=== PATIENT | female | born 1985 | race Caucasian/White ===

== ENCOUNTER 2018-01-18 07:04 | Emergency (ER) | payer SELFPAY ==
--- NOTE | 2018-01-18 07:26 | EDPHYS ---
Physician Documentation [facility] Name: Pam Figueredo Age: 32 yrs Sex: Female : 1985 Arrival Date: 01/18/2018 Time: 07:05 Bed 14 Private MD: ED Physician Cristofer Granados HPI: 01/18 07:35 This 32 yrs old Female presents to ER via Ambulatory with complaints of snw Abdominal Pain. 07:35 The patient presents with abdominal pain in the epigastric area. Onset: The snw symptoms/episode began/occurred gradually, 2 month(s) ago, and became persistent. The symptoms do not radiate. Associated signs and symptoms: Pertinent positives: occ N/V/D, no blood. The symptoms are described as "Lava". Severity of pain: At its worst the pain was moderate severe. The patient has experienced similar episodes in the past, chronically. The patient has not recently seen a physician. Worse with food and right after. 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 - Social history:: Smoking status: Patient uses tobacco products, smokes one-half pack cigarettes per day. - Ebola Screening: : Patient negative for fever greater than or equal to 101.5 degrees Fahrenheit, and additional compatible Ebola Virus Disease symptoms. ROS: 07:35 Constitutional: Negative for fever, chills, and weight loss, Eyes: Negative for injury, snw pain, redness, and discharge, ENT: Negative for injury, pain, and discharge, Neck: Negative for injury, pain, and swelling, Cardiovascular: Negative for chest pain, palpitations, and edema, Respiratory: Negative for shortness of breath, cough, wheezing, and pleuritic chest pain, Back: Negative for injury and pain, : Negative for injury, bleeding, discharge, and swelling, MS/Extremity: Negative for injury and deformity, Skin: Negative for injury, rash, and discoloration, Neuro: Negative for headache, weakness, numbness, tingling, and seizure. 07:35 Abdomen/GI: Positive for abdominal pain, of the epigastric area. Exam: 07:34 Constitutional: This is a well developed, well nourished patient who is awake, alert, snw and in no acute distress. + cigarette odor Head/Face: Normocephalic, atraumatic. Eyes: Pupils equal round and reactive to light, extra-ocular motions intact. Lids and lashes normal. Conjunctiva and sclera are non-icteric and not injected. Cornea within normal limits. Periorbital areas with no swelling, redness, or edema. ENT: Nares patent. No nasal discharge, no septal abnormalities noted. Tympanic membranes are normal and external auditory canals are clear. Oropharynx with no redness, swelling, or masses, exudates, or evidence of obstruction, uvula midline. Mucous membranes moist. Neck: Trachea midline, no thyromegaly or masses palpated, and no cervical lymphadenopathy. Supple, full range of motion without nuchal rigidity, or vertebral point tenderness. No Meningismus. Chest/axilla: Normal chest wall appearance and motion. Nontender with no deformity. No lesions are appreciated. Cardiovascular: Regular rate and rhythm with a normal S1 and S2. No gallops, murmurs, or rubs. Normal PMI, no JVD. No pulse deficits. Respiratory: Lungs have equal breath sounds bilaterally, clear to auscultation and percussion. No rales, rhonchi or wheezes noted. No increased work of breathing, no retractions or nasal flaring. Abdomen/GI: Soft, non-tender, with normal bowel sounds. No distension or tympany. No guarding or rebound. No evidence of tenderness throughout. Back: No spinal tenderness. No costovertebral tenderness. Full range of motion. Skin: Warm, dry with normal turgor. Normal color with no rashes, no lesions, and no evidence of cellulitis. MS/ Extremity: Pulses equal, no cyanosis. Neurovascular intact. Full, normal range of motion. Neuro: Awake and alert, GCS 15, oriented to person, place, time, and situation. Cranial nerves II-XII grossly intact. Motor strength 5/5 in all extremities. Sensory grossly intact. Cerebellar exam normal. Normal gait. Psych: Awake, alert, with orientation to person, place and time. Behavior, mood, and affect are within normal limits. Vital Signs: 07:08 BP 134 / 88; Pulse 70; Resp 19; Temp 97.7(O); Pulse Ox 98% on R/A; Weight 63.5 kg (R); rb1 Height 5 ft. 4 in. (162.56 cm) (R); Pain 9/10; 07:30 BP 125 / 90; Pulse 71; Resp 20; Pulse Ox 97% on R/A; rb1 07:08 Body Mass Index 24.03 (63.50 kg, 162.56 cm) rb1 MDM: 07:17 Patient medically screened. snw 07:37 Data reviewed: vital signs, nurses notes. Data interpreted: Pulse oximetry: on room air snw is 98 %. Interpretation: normal. Counseling: I had a detailed discussion with the patient and/or guardian regarding: the historical points, exam findings, and any diagnostic results supporting the discharge/admit diagnosis, the presence of at least one elevated blood pressure reading (>120/80) during this emergency department visit, the need for outpatient follow up, to return to the emergency department if symptoms worsen or persist or if there are any questions or concerns that arise at home. Special discussion: Based on the patient's Hx, exam, and Dx evaluation, there is no indication for emergent surgery or inpatient Tx. It is understood by the patient/guardian that if the Sx's persist or worsen they need to return immediately for re-evaluation. I have referred the patient to see his PCP for further evaluation of high blood pressure. Based on the history and exam findings, there is no indication for further emergent testing or inpatient evaluation. I discussed with the patient/guardian the need to see the foil cutter for further evaluation of the symptoms. I discussed with the patient/guardian the need to see the primary care provider for further evaluation of the symptoms. Administered Medications: 07:34 Drug: GI Cocktail without - (Maalox Suspension 30 ml, Lidocaine Liquid 2 % 15 rb1 ml) Route: PO; 07:45 Follow up: Response: No adverse reaction; Pain is unchanged, physician notified rb1 07:45 Drug: CarafATE 1 grams Route: PO; rb1 08:06 Follow up: Response: No adverse reaction rb1 07:58 Drug: fentaNYL (PF) 50 mcg Route: IM; Site: right gluteus; rb1 08:15 Follow up: Response: No adverse reaction; Pain is decreased rb1 Disposition: 14:59 Co-signature as Attending Physician, Cristofer Granados MD. rn Disposition: 01/18/18 07:26 Discharged to Home. Impression: Gastritis, unspecified. - Condition is Stable. - Discharge Instructions: Gastritis, Adult, Gastroesophageal Reflux Disease, Adult, Peptic Ulcer Disease, Smoking Cessation, Smoking Hazards, Food Choices for Peptic Ulcer Disease. - Prescriptions for Nexium 20 mg Oral Capsule, Delayed Release(E.C.) - take 1 capsule by ORAL route once daily; 60 capsule. - Medication Reconciliation Form, Thank You Letter, Antibiotic Education, Prescription Opioid Use form. - Follow up: Private Physician; When: 1 - 2 days; Reason: Recheck today's complaints, Continuance of care, Re-evaluation by your physician. Follow up: Emergency Department; When: As needed; Reason: Worsening of condition. Signatures: Milana Moran, TELECOMMUNICATIONS OPERATOR-C TELECOMMUNICATIONS OPERATOR-Csnw Cristofer Granados MD MD rn Eloy, Mojgan RN RN rb1 Corrections: (The following items were deleted from the chart) 08:50 07:26 01/18/2018 07:26 Discharged to Home. Impression: Gastritis, unspecified. rb1 Condition is Stable. Forms are Medication Reconciliation Form, Thank You Letter, Antibiotic Education, Prescription Opioid Use. Follow up: Private Physician; When: 1 - 2 days; Reason: Recheck today's complaints, Continuance of care, Re-evaluation by your physician. Follow up: Emergency Department; When: As needed; Reason: Worsening of condition. snw
--- NOTE | 2018-01-18 07:26 | ER ---
Nurse's Notes [facility] Name: Pam Figueredo Age: 32 yrs Sex: Female : 1985 Arrival Date: 01/18/2018 Time: 07:05 Bed 14 Private MD: Diagnosis: Gastritis, unspecified Presentation: 01/18 07:08 Presenting complaint: Patient states: Her stomach is burning and she c/o acid reflux x rb1 2 months. Transition of care: patient was not received from another setting of care. Onset of symptoms is unknown. Risk Assessment: Do you want to hurt yourself or someone else? Patient reports no desire to harm self or others. Initial Sepsis Screen: Does the patient meet any 2 criteria? No. Patient's initial sepsis screen is negative. Does the patient have a suspected source of infection? No. Patient's initial sepsis screen is negative. Care prior to arrival: None. 07:08 Method Of Arrival: Ambulatory rb1 07:08 Acuity: SILVERIO 3 rb1 Triage Assessment: 07:08 General: Appears in no apparent distress. comfortable, Behavior is calm, cooperative, rb1 Denies fever. Pain: Complains of pain in abdomen Pain currently is 9 out of 10 on a pain scale. Quality of pain is described as burning, Pain began couple months ago per pt. report. Neuro: Level of Consciousness is awake, alert, obeys commands, Oriented to person, place, time, situation. Cardiovascular: Capillary refill < 3 seconds is brisk in bilateral fingers. Respiratory: Reports shortness of breath Airway is patent Respiratory effort is even, unlabored, Respiratory pattern is regular, symmetrical. GI: Abdomen is distended, Reports diarrhea, nausea, vomiting, since 0200. 07:08 : No signs and/or symptoms were reported regarding the genitourinary system. Derm: rb1 Skin is pink, warm \\T\\ dry. Musculoskeletal: Range of motion: intact in all extremities. 07:08 GI: Reports Acid Reflux for a couple of months. 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 - Social history:: Smoking status: Patient uses tobacco products, smokes one-half pack cigarettes per day. - Ebola Screening: : Patient negative for fever greater than or equal to 101.5 degrees Fahrenheit, and additional compatible Ebola Virus Disease symptoms. Screenin:08 Abuse screen: Denies threats or abuse. Nutritional screening: No deficits noted. rb1 Tuberculosis screening: No symptoms or risk factors identified. Fall Risk None identified. Assessment: 07:08 General: See triage assessment. rb1 07:08 GI: Bowel sounds present X 4 quads. Abdomen is tender to palpation X 4 quads. rb1 07:28 Reassessment: Faxed medication to pharmacy. rb1 07:45 Reassessment: Pt was crying when I went in to administer the Carafate, provider rb1 notified. Received order for Fentanyl 50 mcg IM x 1. 07:55 Reassessment: Pt. will call someone for transportation home. Discharge pending due to rb1 transportation. 08:15 Reassessment: Patient appears in no apparent distress at this time. Patient and/or rb1 family updated on plan of care and expected duration. Pain level reassessed. Patient is alert, oriented x 3, equal unlabored respirations, skin warm/dry/pink. 08:30 Reassessment: Went to check on pt. and the pt. was not in her room. Provider stated, rb1 "She said she was going out to smoke and hasn't come back in.". 08:40 Reassessment: Pt. is not in her room and can not be located. Pt. left without signing rb1 discharge papers. Vital Signs: 07:08 BP 134 / 88; Pulse 70; Resp 19; Temp 97.7(O); Pulse Ox 98% on R/A; Weight 63.5 kg (R); rb1 Height 5 ft. 4 in. (162.56 cm) (R); Pain 9/10; 07:30 BP 125 / 90; Pulse 71; Resp 20; Pulse Ox 97% on R/A; rb1 07:08 Body Mass Index 24.03 (63.50 kg, 162.56 cm) rb1 ED Course: 07:05 Patient arrived in ED. as 07:08 Arm band placed on right wrist. rb1 07:08 Patient has correct armband on for positive identification. Placed in gown. Bed in low rb1 position. Call light in reach. Side rails up X 1. Pulse ox on. NIBP on. Warm blanket given. 07:14 Mojgan Lyons, RN is Primary Nurse. rb1 07:16 Triage completed. rb1 07:16 Milana Moran FNP-C is PHCP. snw 07:16 Cristofer Granados MD is Attending Physician. snw 07:18 Milana Moran FNP-C is PHCP. snw 08:40 No provider procedures requiring assistance completed. Patient did not have IV access rb1 during this emergency room visit. Administered Medications: 07:34 Drug: GI Cocktail without - (Maalox Suspension 30 ml, Lidocaine Liquid 2 % 15 rb1 ml) Route: PO; 07:45 Follow up: Response: No adverse reaction; Pain is unchanged, physician notified rb1 07:45 Drug: CarafATE 1 grams Route: PO; rb1 08:06 Follow up: Response: No adverse reaction rb1 07:58 Drug: fentaNYL (PF) 50 mcg Route: IM; Site: right gluteus; rb1 08:15 Follow up: Response: No adverse reaction; Pain is decreased rb1 Outcome: 07:26 Discharge ordered by . snw 08:30 Patient left the ED. rb1 08:40 Discharged to home ambulatory. rb1 08:40 Condition: stable 08:40 Discharge instructions given to pt. left without signing papers. Signatures: Milana Moran FNP-C COLOR BLENDER-Csnw Sera Ku as Mojgan Lyons, RN RN rb1 Corrections: (The following items were deleted from the chart) 08:00 07:58 Reassessment: Pt was crying when I went in to administer the Carafate, provider rb1 notified. Received order for Fentanyl 50 mcg IM x 1 rb1 08:47 07:45 CarafATE 1 grams PO rb1 rb1 08:47 08:46 Response: No adverse reaction rb1 rb1 08:51 08:50 Patient left the ED. rb1 rb1 08:55 07:32 Reassessment: Faxed medication to pharmacy rb1 rb1 08:55 07:55 Reassessment: Pt. will call someone for transportation home. rb1 rb1
[2018-01-18] MEDS ORDERED: MAGNE/ALUM HYDROXD 30 ML UCUP ONE (07:32)
[2018-01-18] MEDS ORDERED: LIDOCAINE VISCOUS 2% SOLN 15 ML UDC ONE (07:32)
[2018-01-18] MEDS ORDERED: SUCRALFATE 1 GM TABLET PO ONE (07:45)
[2018-01-18] MEDS ORDERED: FENTANYL CITR 100 MCG/2 ML ONE (07:53)
[2018-01-18 08:54] VITALS: TEMP 97.7
[2018-01-18 08:56] VITALS: BP 125/90; O2SAT 97
== END 2018-01-18 08:50 | disposition home or self-care (01) ==
LOC: ER 07:04
DX: K29.70 Gastritis, unspecified, without bleeding (principal); F17.210 Nicotine dependence, cigarettes, uncomplicated
CPT/HCPCS: 96372; 99283; J3010

== ENCOUNTER 2018-01-30 11:47 | Emergency (ER) | payer SELFPAY ==
--- NOTE | 2018-01-30 12:22 | EDPHYS ---
Physician Documentation [facility] Name: Pam Figueredo Age: 32 yrs Sex: Female : 1985 Arrival Date: 01/30/2018 Time: 11:49 Bed 13 Private MD: ED Physician Myke Sharma HPI: 01/30 12:16 This 32 yrs old Female presents to ER via Law Enforcement with complaints of gs Vaginal Bleeding. 12:16 The patient presents with vaginal bleeding that is light. Onset: The symptoms/episode gs began/occurred 3 day(s) ago. Modifying factors: The symptoms are alleviated by nothing, the symptoms are aggravated by nothing. Associated signs and symptoms: Pertinent negatives: cramping. Severity of symptoms: At their worst the symptoms were mild, in the emergency department the symptoms are unchanged. The patient has experienced similar episodes in the past, a few times. 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 - Social history:: Smoking status: Patient uses tobacco products, smokes one-half pack cigarettes per day. - Ebola Screening: : Patient negative for fever greater than or equal to 101.5 degrees Fahrenheit, and additional compatible Ebola Virus Disease symptoms Patient denies exposure to infectious person Patient denies travel to an Ebola-affected area in the 21 days before illness onset No symptoms or risks identified at this time. ROS: 12:16 All other systems are negative. gs Exam: 12:16 Head/Face: Normocephalic, atraumatic. Eyes: Pupils equal round and reactive to light, gs extra-ocular motions intact. Lids and lashes normal. Conjunctiva and sclera are non-icteric and not injected. Cornea within normal limits. Periorbital areas with no swelling, redness, or edema. ENT: Nares patent. No nasal discharge, no septal abnormalities noted. Tympanic membranes are normal and external auditory canals are clear. Oropharynx with no redness, swelling, or masses, exudates, or evidence of obstruction, uvula midline. Mucous membranes moist. Neck: Trachea midline, no thyromegaly or masses palpated, and no cervical lymphadenopathy. Supple, full range of motion without nuchal rigidity, or vertebral point tenderness. No Meningismus. Chest/axilla: Normal chest wall appearance and motion. Nontender with no deformity. No lesions are appreciated. Cardiovascular: Regular rate and rhythm with a normal S1 and S2. No gallops, murmurs, or rubs. Normal PMI, no JVD. No pulse deficits. Respiratory: Lungs have equal breath sounds bilaterally, clear to auscultation and percussion. No rales, rhonchi or wheezes noted. No increased work of breathing, no retractions or nasal flaring. Abdomen/GI: Soft, non-tender, with normal bowel sounds. No distension or tympany. No guarding or rebound. No evidence of tenderness throughout. Back: No spinal tenderness. No costovertebral tenderness. Full range of motion. Skin: Warm, dry with normal turgor. Normal color with no rashes, no lesions, and no evidence of cellulitis. MS/ Extremity: Pulses equal, no cyanosis. Neurovascular intact. Full, normal range of motion. Neuro: Awake and alert, GCS 15, oriented to person, place, time, and situation. Cranial nerves II-XII grossly intact. Motor strength 5/5 in all extremities. Sensory grossly intact. Cerebellar exam normal. Normal gait. 12:16 Constitutional: The patient appears alert, awake. Vital Signs: 11:54 BP 125 / 94; Pulse 86; Resp 16; Temp 98.2; Pulse Ox 99% on R/A; Weight 63.5 kg; Height iw 5 ft. 4 in. (162.56 cm); Pain 8/10; 11:54 Body Mass Index 24.03 (63.50 kg, 162.56 cm) iw MDM: 12:15 Patient medically screened. 12:16 Differential diagnosis: dysmenorrhea, ectopic , menometrorrhagia, Data reviewed: vital signs, nurses notes. Response to treatment: the patient's symptoms have mildly improved after treatment, and as a result, I will discharge patient. 01/30 11:55 Order name: Urine Microscopic Only gs 01/30 11:55 Order name: Urine Microscopic Only EDWI 01/30 11:55 Order name: Urine Test (obtain specimen); Complete Time: 12:22 01/30 11:55 Order name: Urine Dipstick-Ancillary (obtain specimen); Complete Time: 12:21 Administered Medications: No medications were administered Disposition: 01/30/18 12:21 Discharged to Home. Impression: Other abnormal uterine and vaginal bleeding. - Condition is Stable. - Discharge Instructions: Uterine Bleeding, Dysfunctional. - Medication Reconciliation Form, Thank You Letter, Antibiotic Education, Prescription Opioid Use form. - Follow up: Private Physician; When: 2 - 3 days; Reason: Re-evaluation by your physician. Signatures: Dispatcher [employer] EDPearl Mejía RN RN aj Williams, Irene, RN RN iw Starr, Gregory, MD MD gs Corrections: (The following items were deleted from the chart) 12:29 12:21 01/30/2018 12:21 Discharged to Home. Impression: Other abnormal uterine and aj vaginal bleeding. Condition is Stable. Forms are Medication Reconciliation Form, Thank You Letter, Antibiotic Education, Prescription Opioid Use. Follow up: Private Physician; When: 2 - 3 days; Reason: Re-evaluation by your physician.
--- NOTE | 2018-01-30 12:22 | ER ---
Nurse's Notes [facility] Name: Pam Figueredo Age: 32 yrs Sex: Female : 1985 Arrival Date: 01/30/2018 Time: 11:49 Bed 13 Private MD: Diagnosis: Other abnormal uterine and vaginal bleeding Presentation: 01/30 11:51 Presenting complaint: Patient states: "I am four months and started bleeding 2 iw hours ago", pt also c/o low abd pain. Transition of care: patient was not received from another setting of care. Onset of symptoms was January 30, 2018. Risk Assessment: Do you want to hurt yourself or someone else? Patient reports no desire to harm self or others. Initial Sepsis Screen: Does the patient meet any 2 criteria? No. Patient's initial sepsis screen is negative. Does the patient have a suspected source of infection? No. Patient's initial sepsis screen is negative. Care prior to arrival: None. 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 - Social history:: Smoking status: Patient uses tobacco products, smokes one-half pack cigarettes per day. - Ebola Screening: : Patient negative for fever greater than or equal to 101.5 degrees Fahrenheit, and additional compatible Ebola Virus Disease symptoms Patient denies exposure to infectious person Patient denies travel to an Ebola-affected area in the 21 days before illness onset No symptoms or risks identified at this time. Screenin:00 Abuse screen: Denies threats or abuse. Denies injuries from another. Nutritional iw screening: No deficits noted. Tuberculosis screening: No symptoms or risk factors identified. Fall Risk None identified. Assessment: 12:00 General: Appears in no apparent distress. Behavior is calm, cooperative. Pain: iw Complains of pain in right lower quadrant and left lower quadrant Pain currently is 8 out of 10 on a pain scale. Neuro: Level of Consciousness is awake, alert, obeys commands, Oriented to person, place, time, situation, Moves all extremities. Full function. Cardiovascular: Patient's skin is warm and dry. Respiratory: Respiratory effort is even, unlabored, Respiratory pattern is regular. GI: Reports lower abdominal pain. : Reports vaginal bleeding that is. Derm: Skin is pink, warm \\T\\ dry. normal. Musculoskeletal: Range of motion: intact in all extremities. 12:08 Reassessment: Patient states, "When I get stressed I bleed.". General: Appears in no aj apparent distress. comfortable, Behavior is calm, cooperative, appropriate for age. Pain: Complains of pain in right lower quadrant and left lower quadrant. Neuro: Level of Consciousness is awake, alert, obeys commands, Oriented to person, place, time, situation. Respiratory: Airway is patent Respiratory effort is even, unlabored, Respiratory pattern is regular, symmetrical. GI: Reports lower abdominal pain. : Reports vaginal bleeding that is with clots, moderate flow. Derm: Skin is intact, is healthy with good turgor, Skin is pink, warm \\T\\ dry. normal. Vital Signs: 11:54 BP 125 / 94; Pulse 86; Resp 16; Temp 98.2; Pulse Ox 99% on R/A; Weight 63.5 kg; Height iw 5 ft. 4 in. (162.56 cm); Pain 8/10; 11:54 Body Mass Index 24.03 (63.50 kg, 162.56 cm) iw ED Course: 11:49 Patient arrived in ED. iw 11:52 Myke Sharma MD is Attending Physician. gs 11:53 Triage completed. iw 11:54 Arm band placed on. iw 12:00 Rukhsana Sanchez, RN is Primary Nurse. iw 12:08 Patient has correct armband on for positive identification. aj 12:27 No provider procedures requiring assistance completed. Patient did not have IV access aj during this emergency room visit. Administered Medications: No medications were administered Outcome: 12:21 Discharge ordered by . gs 12:27 Discharged to Law Enforcement aj 12:27 Condition: good 12:27 Discharge instructions given to patient, police, Instructed on discharge instructions, follow up and referral plans. Patient informed of negative UPT results. Stated "Oh thank God, I am in no shape to have a baby." 12:29 Patient left the ED. aj Signatures: Pearl Ponce RN RN aj Williams, Irene, RN RN iw Starr, Gregory, MD MD gs Corrections: (The following items were deleted from the chart) 11:53 11:51 Method Of Arrival: Ambulatory dmitry
[2018-01-30 12:32] VITALS: BP 125/94; TEMP 98.2; O2SAT 99
[2018-01-30 12:39] LABS: Urine Amorphous Sediment 1+ /HPF (NONE SEEN); Urine Bacteria 20-50 /HPF (<20); Urine Culture Reflex Order REFLEXED; Urine Mucus 2+ /HPF (NONE SEEN)
== END 2018-01-30 12:29 | disposition home or self-care (01) ==
LOC: ER 11:47
DX: N93.9 Abnormal uterine and vaginal bleeding, unspecified (principal); F17.210 Nicotine dependence, cigarettes, uncomplicated
CPT/HCPCS: 81015; 87086; 87088; 99281

== ENCOUNTER 2018-04-14 09:12 | Emergency (ER) | payer SELFPAY ==
[2018-04-14] MEDS ORDERED: ONDANSETRON 4 MG/2 ML VIAL ONE (09:29)
[2018-04-14] MEDS ORDERED: NA CHLORIDE 0.9% 1,000 ML ONE (09:29)
[2018-04-14 09:36] LABS: Absolute Lymphocytes (CBC) 2.8 K/uL (0.7-4.9); Absolute Monocytes 0.9 K/uL (0.1-1.3); Absolute Neutrophil 11.9 K/uL (1.8-8.0); Basophils % 0.4 % (0-1.3); Eosinophils % 1.3 % (0-4.4); Hematocrit 42.9 % (36.0-45.0); Lymphocytes % 17.5 % (15.3-44.8); MCV 86.7 fL (80-100); MPV 8.2 fL (7.6-11.3); Monocytes % 5.9 % (3.3-12.3); RBC Red Blood Cell Count 4.95 M/uL (3.86-4.86)
[2018-04-14 09:47] LABS: Urine Blood TRACE (NEG); Urine Glucose NEGATIVE (NEG); Urine Protein TRACE (NEG); Urine pH 5.5 (5.0-7.0)
[2018-04-14 09:54] LABS: Albumin 3.9 g/dL (3.4-5.0); Bilirubin Direct 0.1 mg/dL (0-0.2); Bilirubin Total 0.3 mg/dL (0.2-1.0); Protein, Total 7.9 g/dL (6.4-8.2)
[2018-04-14] MEDS ORDERED: predniSONE 20 MG TAB ONE (10:14)
[2018-04-14] MEDS ORDERED: DICYCLOMINE HCL 10 MG CAP ONE (10:14)
--- NOTE | 2018-04-14 10:44 | RAD REPORT ---
EXAM DESCRIPTION: US - Abdomen Exam Limited - 04/14/2018 10:35 am CLINICAL HISTORY: Abdominal pain, patient not fasting for the examination COMPARISON: CT study 2011 FINDINGS: Gallbladder is contracted. No large stones are identifiable. No measurable quantity of slu dge. Wall thickness is accentuated by the contracted state. No pericholecystic fluid. No common duct stone or biliary tree dilatation identified. IMPRESSION: Gallbladder is contracted from nonfasting state. This limits assessment. No stones, sludge or biliary tree abnormality identifiable.
--- NOTE | 2018-04-14 10:49 | EDPHYS ---
Physician Documentation [facility] Name: Pam Figueredo Age: 33 yrs Sex: Female : 1985 Arrival Date: 04/14/2018 Time: 09:15 Bed 6 Private MD: None, None ED Physician Myke Sharma HPI: 04/14 09:39 This 33 yrs old Female presents to ER via Ambulatory with complaints of Rash, kb Vomiting/Diarrhea. 09:40 The patient presents to the emergency department with nausea, vomiting, diarrhea. kb Onset: The symptoms/episode began/occurred 4 day(s) ago. Possible causes: unknown. The symptoms are aggravated by nothing. The symptoms are alleviated by nothing. Associated signs and symptoms: Pertinent positives: diarrhea, nausea, vomiting. Severity of symptoms: At their worst the symptoms were moderate in the emergency department the symptoms are unchanged. The patient has not experienced similar symptoms in the past. The patient has not recently seen a physician. Pt reports nausea, vomiting and diarrhea that started 4 days ago. Also reports a rash that started 3 days ago. Rash is to chest and is pruritic. States she was in a rehab for the past 30 days. 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 - Social history:: Smoking status: Patient/guardian denies using tobacco. - Ebola Screening: : No symptoms or risks identified at this time. ROS: 09:39 Constitutional: Negative for fever, chills, and weight loss, Cardiovascular: Negative kb for chest pain, palpitations, and edema, Respiratory: Negative for shortness of breath, cough, wheezing, and pleuritic chest pain, Back: Negative for injury and pain, : Negative for injury, bleeding, discharge, and swelling, MS/Extremity: Negative for injury and deformity, Neuro: Negative for headache, weakness, numbness, tingling, and seizure. 09:39 Abdomen/GI: Positive for nausea, vomiting, and diarrhea, Negative for abdominal pain, constipation, abdominal cramps, abdominal distension, anorexia. 09:39 Skin: Positive for rash, of the chest. Exam: 09:39 Constitutional: This is a well developed, well nourished patient who is awake, alert, kb and in no acute distress. Head/Face: Normocephalic, atraumatic. Chest/axilla: Normal chest wall appearance and motion. Nontender with no deformity. No lesions are appreciated. Cardiovascular: Regular rate and rhythm with a normal S1 and S2. No gallops, murmurs, or rubs. Normal PMI, no JVD. No pulse deficits. Respiratory: Lungs have equal breath sounds bilaterally, clear to auscultation and percussion. No rales, rhonchi or wheezes noted. No increased work of breathing, no retractions or nasal flaring. Abdomen/GI: Soft, non-tender, with normal bowel sounds. No distension or tympany. No guarding or rebound. No evidence of tenderness throughout. Back: No spinal tenderness. No costovertebral tenderness. Full range of motion. MS/ Extremity: Pulses equal, no cyanosis. Neurovascular intact. Full, normal range of motion. Neuro: Awake and alert, GCS 15, oriented to person, place, time, and situation. Cranial nerves II-XII grossly intact. Motor strength 5/5 in all extremities. Sensory grossly intact. Cerebellar exam normal. Normal gait. 09:39 Skin: rash can be described as nonspecific, consistent with contact dermatitis, on the chest. Vital Signs: 09:29 BP 118 / 83; Pulse 87; Resp 16; Temp 97.6; Pulse Ox 100% on R/A; la1 10:40 BP 122 / 74; Pulse 84; Resp 16; Pulse Ox 100% on R/A; la1 MDM: 09:17 Patient medically screened. kb 09:39 Data reviewed: vital signs, nurses notes. Data interpreted: Pulse oximetry: on room air kb is 100 %. Interpretation: normal. 10:47 Counseling: I had a detailed discussion with the patient and/or guardian regarding: the kb historical points, exam findings, and any diagnostic results supporting the discharge/admit diagnosis, lab results, radiology results, the need for outpatient follow up, a family practitioner, to return to the emergency department if symptoms worsen or persist or if there are any questions or concerns that arise at home. 04/14 09:21 Order name: Basic Metabolic Panel kb 04/14 09:21 Order name: CBC with Diff; Complete Time: 10:02 kb 04/14 09:21 Order name: Hepatic Function; Complete Time: 10:02 kb 04/14 09:21 Order name: Lipase; Complete Time: 10:02 kb 04/14 09:21 Order name: Flu; Complete Time: 10:02 kb 04/14 09:21 Order name: [place] Screen Profile; Complete Time: 10:02 kb 04/14 09:21 Order name: Strep; Complete Time: 10:02 kb 04/14 09:22 Order name: Basic Metabolic Panel; Complete Time: 10:02 EDMS 04/14 09:33 Order name: Urine Dipstick--Ancillary (enter results); Complete Time: 10:02 eb 04/14 09:33 Order name: Urine --Ancillary (enter results) eb 04/14 09:33 Order name: Urine --Ancillary; Complete Time: 10:02 EDMS 04/14 10:01 Order name: Throat Culture EDSD 04/14 10:05 Order name: US Abdomen Limited; Complete Time: 10:47 kb 04/14 09:21 Order name: IV Saline Lock; Complete Time: 09:30 kb 04/14 09:21 Order name: Labs collected and sent; Complete Time: 09:30 kb Administered Medications: 09:24 Drug: NS 0.9% 1000 ml Route: IV; Rate: 1000 ml; Site: right forearm; hj 10:12 Follow up: IV Status: Completed infusion; IV Intake: 1000ml hj 09:25 Drug: Zofran 4 mg Route: IVP; Site: right forearm; hj 09:57 Follow up: Response: No adverse reaction; Nausea is decreased hj 10:07 Drug: predniSONE 40 mg Route: PO; hj 10:32 Follow up: Response: No adverse reaction hj 10:07 Drug: Bentyl 20 mg Route: PO; hj 10:32 Follow up: Response: No adverse reaction Disposition: 17:31 Co-signature as Attending Physician, Myke Sharma MD. Disposition: 04/14/18 10:48 Discharged to Home. Impression: Rash and other nonspecific skin eruption, Nausea and vomiting, Diarrhea, unspecified. - Condition is Stable. - Discharge Instructions: Food Choices to Help Relieve Diarrhea, Adult, Nausea and Vomiting, Adult, [id number], Diarrhea, Adult, [id number], Rash, [id number]. - Prescriptions for Bentyl 20 mg Oral Tablet - take 1 tablet by ORAL route every 6 hours As needed; 20 tablet. Prednisone 20 mg Oral Tablet - take 1 tablet by ORAL route once daily for 5 days; 5 tablet. Zofran 4 mg Oral Tablet - take 1 tablet by ORAL route every 6 hours As needed; 20 tablet. - Medication Reconciliation Form, Thank You Letter, Antibiotic Education, Prescription Opioid Use form. - Follow up: Emergency Department; When: As needed; Reason: Worsening of condition. Follow up: Private Physician; When: 2 - 3 days; Reason: Recheck today's complaints, Continuance of care, Re-evaluation by your physician. Signatures: Dispatcher [employer] EDMS Caren Elizalde, JOB HONER-C JOB HONER-Sonya Altamirano RN RN ss Arnaud Abel RN RN la1 Gabriel Daigle RN RN Myke Sharma MD MD gs Corrections: (The following items were deleted from the chart) 09:23 09:21 Immunization history: Adult Immunizations ss ss 10:53 10:48 04/14/2018 10:48 Discharged to Home. Impression: Rash and other nonspecific skin ss eruption; Nausea and vomiting; Diarrhea, unspecified. Condition is Stable. Forms are Medication Reconciliation Form, Thank You Letter, Antibiotic Education, Prescription Opioid Use. Follow up: Emergency Department; When: As needed; Reason: Worsening of condition. Follow up: Private Physician; When: 2 - 3 days; Reason: Recheck today's complaints, Continuance of care, Re-evaluation by your physician. kb
--- NOTE | 2018-04-14 10:49 | ER ---
Nurse's Notes [facility] Name: Pam Figueredo Age: 33 yrs Sex: Female : 1985 Arrival Date: 04/14/2018 Time: 09:15 Bed 6 Private MD: None, None Diagnosis: Rash and other nonspecific skin eruption;Nausea and vomiting;Diarrhea, unspecified Presentation: 04/14 09:21 Presenting complaint: Patient states: rash to chest, headache, N/V, body aches and ss diarrhea that began 3-4 days ago. 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 Transition of care: patient was not received from another setting of care. Onset of symptoms was April 09, 2018. Risk Assessment: Do you want to hurt yourself or someone else? Patient reports no desire to harm self or others. Initial Sepsis Screen: Does the patient meet any 2 criteria? No. Patient's initial sepsis screen is negative. Does the patient have a suspected source of infection? No. Patient's initial sepsis screen is negative. Care prior to arrival: None. 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 - Social history:: Smoking status: Patient/guardian denies using tobacco. - Ebola Screening: : No symptoms or risks identified at this time. Screenin:32 Abuse screen: Denies threats or abuse. Nutritional screening: No deficits noted. la1 Tuberculosis screening: No symptoms or risk factors identified. Fall Risk None identified. Assessment: 09:31 General: Appears in no apparent distress. Behavior is calm, cooperative. Pain: la1 Complains of pain in all over, body aches. Neuro: Level of Consciousness is awake, alert, obeys commands, Oriented to person, place, time, situation. Cardiovascular: Capillary refill < 3 seconds Patient's skin is warm and dry. Respiratory: Airway is patent Trachea midline Respiratory effort is even, unlabored, Respiratory pattern is regular, symmetrical. GI: Abdomen is round non-distended, Bowel sounds present X 4 quads. Abd is non tender X 4 quads Reports nausea, vomiting. 09:57 Reassessment: Patient and/or family updated on plan of care and expected duration. Pain hj level reassessed. Patient is alert, oriented x 3, equal unlabored respirations, skin warm/dry/pink. 10:35 Reassessment: Patient and/or family updated on plan of care and expected duration. Pain hj level reassessed. Patient is alert, oriented x 3, equal unlabored respirations, skin warm/dry/pink. US done;. Vital Signs: 09:29 BP 118 / 83; Pulse 87; Resp 16; Temp 97.6; Pulse Ox 100% on R/A; la1 10:40 BP 122 / 74; Pulse 84; Resp 16; Pulse Ox 100% on R/A; la1 ED Course: 09:15 Patient arrived in ED. mr 09:16 None, None is Private Physician. mr 09:17 Caren Elizalde, [facility] kb 09:17 Myke Sharma MD is Attending Physician. kb 09:23 Triage completed. ss 09:25 Urine collected: clean catch specimen, cloudy, ana colored. jb1 09:25 Initial lab(s) drawn, by ED staff, sent to lab. Inserted saline lock: 20 gauge in right hj forearm, using aseptic technique. ,using aseptic technique. Arnaud RN Blood collected. 09:29 Arnaud Abel, RN is Primary Nurse. la1 09:30 Strep Sent. hj 09:30 [place] Screen Profile Sent. hj 09:30 Flu Sent. hj 09:30 Basic Metabolic Panel Sent. hj 09:30 Lipase Sent. hj 09:30 Hepatic Function Sent. hj 09:30 CBC with Diff Sent. hj 09:30 Basic Metabolic Panel Sent. hj 09:30 Arm band placed on right wrist. la1 09:31 Inserted saline lock: 20 gauge in right forearm, using aseptic technique. Blood la1 collected. 09:32 Bed in low position. Call light in reach. Side rails up X 1. Pulse ox on. NIBP on. la1 10:33 Ultrasound completed. Patient tolerated well. sg3 10:34 US Abdomen Limited In Process Unspecified. EDMS 10:53 No provider procedures requiring assistance completed. IV discontinued, intact, ss bleeding controlled, No redness/swelling at site. Pressure dressing applied. Administered Medications: 09:24 Drug: NS 0.9% 1000 ml Route: IV; Rate: 1000 ml; Site: right forearm; hj 10:12 Follow up: IV Status: Completed infusion; IV Intake: 1000ml hj 09:25 Drug: Zofran 4 mg Route: IVP; Site: right forearm; hj 09:57 Follow up: Response: No adverse reaction; Nausea is decreased hj 10:07 Drug: predniSONE 40 mg Route: PO; hj 10:32 Follow up: Response: No adverse reaction hj 10:07 Drug: Bentyl 20 mg Route: PO; hj 10:32 Follow up: Response: No adverse reaction hj Intake: 10:12 IV: 1000ml; Total: 1000ml. hj Outcome: 10:48 Discharge ordered by MD. kb 10:53 Discharged to home ambulatory, with family. ss 10:53 Condition: improved 10:53 Discharge instructions given to patient, family, Instructed on discharge instructions, follow up and referral plans. medication usage, Demonstrated understanding of instructions, follow-up care, medications, Prescriptions given X 3. 10:53 Patient left the ED. ss Signatures: Dispatcher [employer] EDMS Don Jean jbCaren Sanchez, TAILOR'S AIDE-C TAILOR'S AIDE-CkLesa Louise mr Sonya Gonzalez, RN RN Arnaud Abel RN RN la1 Gabriel Daigle, ALAN RN Romi Hamilton 3 Corrections: (The following items were deleted from the chart) 09:23 09:21 Immunization history: Adult Immunizations ss ss
[2018-04-14 11:09] VITALS: BP 118/83; TEMP 97.6; O2SAT 100
== END 2018-04-14 10:53 | disposition home or self-care (01) ==
LOC: ER 09:12
DX: R11.2 Nausea with vomiting, unspecified (principal); R19.7 Diarrhea, unspecified
CPT/HCPCS: 36415; 76705; 80048; 80076; 81003; 81025; 83690; 85025; 86308; 87070; 87081; 87804; 96361; 96374; 99284; J2405; J7030; J7512